=== PATIENT | female | born 1950 | race Caucasian/White ===

== ENCOUNTER 2023-02-03 03:47 | Day surgery (SDC) | payer MEDICARE, SELFPAY ==
[2023-02-03] VITALS (7 sets, daily range): BP systolic 116–151; BP diastolic 77–93; PULSE 60–106; RESP 12–16; TEMP 36.6; O2SAT 97–99; BMI 42.0
--- NOTE | 2023-02-03 10:30 | ECG_ITS ---
Measurements Intervals [place] Rate: 62 P: 47 CT: 216 QRS: -12 QRSD: 169 T: 6 QT: 470 QTc: 479 Interpretive Statements SINUS RHYTHM WITH FIRST DEGREE AV BLOCK POSSIBLE LEFT ATRIAL ENLARGEMENT [-0.1mV P WAVE IN V1/V2] RIGHT BUNDLE BRANCH BLOCK [120+ ms QRS DURATION, UPRIGHT V1, 40+ ms S IN I/aVL/V4/V5/V6] COMPARED TO ECG 02/03/2023 11:13:57 SINUS RHYTHM NOW PRESENT Electronically Signed On 02-03-2023 12:48:53 CDT by Juanita Reese M.D.
[2023-02-03 11:43] LABS: Anion Gap 8 mmol/L (8-16); Blood Urea Nitrogen 13 mg/dL (7-17); Calcium 8.8 mg/dL (8.4-10.2); Carbon Dioxide 23 mmol/L (22-30); Chloride 106 mmol/L (98-107); Estimated CRCL calculation 79 ml/min; Estimated Glomerular Filt Rate > 60; Glucose 108 mg/dL (65-110); Magnesium 2.1 mg/dL (1.6-2.3); Potassium 4.2 mmol/L (3.4-5.0); Sodium 137 mmol/L (137-145)
--- NOTE | 2023-02-03 11:45 | ECHO_ITS ---
Patient Info Name: Delmi Corbin Age: 72 years : 1950 Gender: Female Ht: 66 in Wt: 260 lbs BSA: 2.40 m2 HR: 117 bpm Exam Date: 02/03/2023 11:58 AM Exam Location: [facility] Patient Status: Outpatient Admit Date: 02/03/2023 Staff Ordering Physician: Ciro Ko DO Pull Worker: Rachel Zaidi RDCS Attending Provider: Ciro Ko DO Referring Physician: Maikel BAIRES; Exam Type: CA echo transesophageal Study Info Indications I48.1 - Persistent atrial fibrillation Complete two-dimensional, color flow and Doppler transesophageal study is performed. Procedure Details Risks/benefits/alternative treatment to HALIE discuss with patient and she gave informed consent. Patient monitored electrocardiographically, vitals and pulse oximety. At baseline she is atrial flutter at HR 118 bpm, BP 170/110 mmHg, pulse ox 99%. Cetacaine spray given x 1. HAILE probe advanced into esophagus without incident. Multiple images obtained at various levels of esophagus. HALIE probe withdrawn and no blood noted on HALIE probe tip. No complications. Patient tolerated procedure well. Summary 1. Left ventricular chamber dimension is normal. 2. Left ventricular systolic function is normal with an ejection fraction of 55-60%. 3. There is mild concentric increased left ventricular wall thickness. 4. The left ventricular diastolic function is indeterminate as it was not assessed. 5. Left atrial chamber dimension is moderately enlarged. 6. There is mild aortic valve sclerosis. 7. There is mild mitral valve regurgitation. Left Ventricle Left ventricular systolic function is normal with an ejection fraction of 55-60%. The left ventricular diastolic function is indeterminate as it was not assessed. Left ventricular chamber dimension is normal. There is mild concentric increased left ventricular wall thickness. Right Ventricle Right ventricular chamber dimension is normal. Right ventricular systolic function is normal. Left Atria Left atrial chamber dimension is moderately enlarged. Right Atria Right atrial chamber dimension is normal. Atrial Appendage There is no thrombus visualized in the left atrial appendage. Aortic Valve The aortic valve is trileaflet. There is mild aortic valve sclerosis. There is no aortic valve stenosis. There is no aortic valve regurgitation. Pulmonic Valve There is no pulmonic regurgitation. Mitral Valve There is no mitral valve stenosis. There is mild mitral valve regurgitation. Tricuspid Valve There is no tricuspid valve regurgitation. Pericardium/Pleural There is no pericardial effusion. Inferior Vena Cava Inferior vena cava is not well visualized. Aorta The aortic root size at the sinus of Valsalva is normal. Report Signatures
--- NOTE | 2023-02-03 12:30 | ECG_ITS ---
Measurements Intervals [place] Rate: 106 P: [place]: 0 QRS: -13 QRSD: 164 T: 28 QT: 376 QTc: 502 Interpretive Statements ATRIAL FLUTTER/TACHYCARDIA WITH RAPID VENTRICULAR RESPONSE RIGHT BUNDLE BRANCH BLOCK [120+ ms QRS DURATION, UPRIGHT V1, 40+ ms S IN I/aVL/V4/V5/V6] COMPARED TO ECG 07/25/2018 08:15:17 ATRIAL FLUTTER NOW PRESENT Electronically Signed On 02-03-2023 12:48:09 CDT by Juanita Reese M.D.
--- NOTE | 2023-02-03 12:51 | WPDCARDVER ---
Cardioversion Cardioversion Date of procedure: 02/03/23 Procedure: DC Cardioversion Pre-op diagnosis: Sympomatic atrial flutter Post-op diagnosis: Same Indications: Symptomatic atrial flutter Description of procedure: Risks/benefits/alternative to Cardioversion discuss with patient and she gave informed consent. HALIE under anesthesia was just done and showed no HEATH or left atrial thrombus. Patient had defibrillator pads to anterior and posterior chest wall. Patient monitored electrocardiographically, vitals and pulse ox. Cardioversion set at 100 J synchronized biphasic energy, and she cardioverted to sinus rhythm at 60 bpm with one shock. Patient tolerated procedure well, no complications. Sedation: As per anesthesiology Conclusion: 1. Successful cardioversion from atrial flutter to sinus rhythm. 2. Obtain EKG. [facility] Billing for Cardioversion: Cardioversion
== END 2023-02-03 13:50 | disposition home or self-care (01) ==
PROVIDERS: PCP Internal Medicine; Visit Provider Internal Medicine Cardiovascular Disease
PROC: (CPT 93312; principal; 2023-02-03 12:00)
PROC: 5A2204Z Restoration of Cardiac Rhythm, Single (ICD-10-PCS; 2023-02-03 12:00)
DX: I48.92 Unspecified atrial flutter (principal); I48.19 Other persistent atrial fibrillation; I35.8 Other nonrheumatic aortic valve disorders; I34.0 Nonrheumatic mitral (valve) insufficiency; I10 Essential (primary) hypertension; G47.33 Obstructive sleep apnea (adult) (pediatric); E78.5 Hyperlipidemia, unspecified; E66.9 Obesity, unspecified; Z68.41 Body mass index [BMI] 40.0-44.9, adult; Z79.01 Long term (current) use of anticoagulants
CPT/HCPCS: 36415; 80048; 83735; 92960; 93312; 93320; 93325; J2250; J2704; J3010